=== PATIENT | female | born 2000 | race Caucasian/White ===

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

== ENCOUNTER 2022-01-24 17:00 | Outpatient (CLI) | payer OTHER ==
[2022-01-24 18:27] LABS: THYROID STIMULATING HORMONE 4.11 uIU/mL (0.34-5.60)
[2022-01-24 18:29] LABS: FREE T4 (FREE THYROXINE) 0.87 ng/dL (0.58-1.64)
--- NOTE | 2022-01-25 08:59 | Ultrasound Report ---
PROCEDURE: Pelvic w/Transvaginal INDICATIONS: IRREGULAR MENSTRUATION TECHNIQUE: Real-time scanning was performed of the pelvic organs, with image documentation. Additional endovagi nal scanning was necessary due to incomplete visualization of the adnexal and endometrial structures by transabdominal scanning. COMPARISON: July 22, 2019. FINDINGS: UTERUS: Retroverted predominantly homogeneous echotexture, and measures 7.3 x 4 x 4.8 cm. The endomet rial complex measures 5.2 mm. RIGHT OVARY: 3.9 x 2 x 2.8 cm. Vol: 11.3 mL. Color-flow projects over the ovarian tissue. LEFT OVARY: 4.2 x 1.7 x 3.2 cm. Vol: 12.1 mL. Color-flow projects over the ovarian tissue. Greater than 12 follicles in each ovary. OTHER: None. IMPRESSION: 1.Greater than 12 follicles in each ovary. Reviewed by: Chavez Carey MD on 01/25/2022 8:57 AM PDT Approved by: Chavez Carey MD on 01/25/2022 8:57 AM PDT Station ID: [id number]
== END 2022-01-24 17:01 | disposition home or self-care (01) ==
LOC: DI 17:00
PROVIDERS: ATTEND Nurse Practitioner Obstetrics & Gynecology
DX: N92.6 Irregular menstruation, unspecified (principal); E28.2 Polycystic ovarian syndrome
CPT/HCPCS: 36415; 81599; 83036; 84439; 84443

== ENCOUNTER 2023-08-20 14:45 | Outpatient (CLI) | payer OTHER ==
[2023-08-20 17:32] LABS: BASOPHILS % (AUTO) 0.6 %; EOSINOPHILS # (AUTO) 0.1 10^3/uL (0.0-0.7); HCT - HEMATOCRIT 43.4 % (37.0-47.0); HGB - HEMOGLOBIN 14.1 g/dL (12.0-16.0); LYMPHOCYTES # (AUTO) 1.4 10^3/uL (1.5-3.5); MEAN CORPUSCULAR HEMOGLOBIN 30.1 pg (27.0-31.0); MEAN CORPUSCULAR HGB CONC 32.5 g/dL (32.0-36.0); MEAN CORPUSCULAR VOLUME 92.7 fL (81.0-99.0); MEAN PLATELET VOLUME 11.1 fL (7.9-10.8); MONOCYTES # (AUTO) 0.4 10^3/uL (0.0-1.0); MONOCYTES % (AUTO) 6.1 %; NEUTROPHILS # (AUTO) 4.4 10^3/uL (1.5-6.6); PLT - PLATELET COUNT 298 10^3/uL (130-450); RED BLOOD COUNT 4.68 10^6/uL (4.20-5.40); RED CELL DISTRIBUTION WIDTH 12.7 % (12.0-15.0); WHITE BLOOD COUNT 6.4 x10^3/uL (4.8-10.8)
[2023-08-20 18:22] LABS: ALBUMIN 4.9 g/dL (3.2-5.5); ALBUMIN/GLOBULIN RATIO 1.6 (1.0-2.2); BILIRUBIN,TOTAL 0.5 mg/dL (0.2-1.0); CALCIUM 10.3 mg/dL (8.5-10.3); CREATININE 0.7 mg/dL (0.6-1.3); POTASSIUM 3.7 mmol/L (3.5-4.5)
[2023-08-20 18:26] LABS: THYROID STIMULATING HORMONE 2.13 uIU/mL (0.34-5.60)
== END 2023-08-20 15:00 | disposition home or self-care (01) ==
LOC: LAB.N 14:45
PROVIDERS: ATTEND Physician Assistant Medical
DX: R00.2 Palpitations (principal)
CPT/HCPCS: 36415; 80053; 84439; 84443; 84481; 85025

== ENCOUNTER 2024-01-16 21:11 | Outpatient (CLI) | payer MEDICAID ==
--- NOTE | 2024-01-17 18:52 | Ultrasound Report ---
PROCEDURE: Soft Tissue Head or Neck INDICATIONS: MASS TECHNIQUE: Real-time scanning was performed of the thyroid gland, with image documentation. COMPARISON: None FINDINGS: Targeted ultrasound of the right neck area of palpable concern demonstrates a lymph node with normal morphology measuring 0.7 cm in short axis. There are bilateral symmetric lymph nodes in the neck whic h are not enlarged with normal morphology including an echogenic fatty hilum. IMPRESSION: Bilateral symmetric nonenlarged lymph nodes with normal morphology. Recommend clinical correlation. Reviewed by: Winter Khanna MD on 01/17/2024 6:51 PM PDT Approved by: Winter Khanna MD on 01/17/2024 6:51 PM PDT Station ID: [id number]
== END 2024-01-16 21:12 | disposition home or self-care (01) ==
LOC: DI 21:11
PROVIDERS: ATTEND Physician Assistant
DX: R22.1 Localized swelling, mass and lump, neck (principal)

== ENCOUNTER 2024-04-02 14:00 | Outpatient (CLI) | payer MEDICAID ==
--- NOTE | 2024-04-02 17:07 | XRAY Report ---
PROCEDURE: Chest 2V INDICATIONS: CHEST PAIN, UNSPECIFIED TECHNIQUE: 2 views of the chest were acquired. COMPARISON: None. FINDINGS: Surgical changes and devices: None. Lungs and pleura: No dense consolidation or pleural effusion. Mediastinum: Normal heart size Bones and chest wall: Unremarkable IMPRESSION: No acute radiographic abnormality. Reviewed by: Brian Simon MD on 04/02/2024 5:06 PM PDT Approved by: Brian Simon MD on 04/02/2024 5:06 PM PDT Station ID: [id number]
== END 2024-04-02 15:30 | disposition home or self-care (01) ==
LOC: DI.N 14:00
PROVIDERS: ATTEND Nurse Practitioner
DX: R07.9 Chest pain, unspecified (principal)

== ENCOUNTER 2024-05-07 18:19 | Outpatient (CLI) | payer MEDICAID ==
[2024-05-07 18:45] LABS: BASOPHILS # (AUTO) 0.1 10^3/uL (0.0-0.1); BASOPHILS % (AUTO) 0.9 %; EOSINOPHILS # (AUTO) 0.8 10^3/uL (0.0-0.7); EOSINOPHILS % (AUTO) 10.4 %; HCT - HEMATOCRIT 40.2 % (37.0-47.0); HGB - HEMOGLOBIN 13.3 g/dL (12.0-16.0); LYMPHOCYTES # (AUTO) 2.1 10^3/uL (1.5-3.5); MEAN CORPUSCULAR HEMOGLOBIN 29.8 pg (27.0-31.0); MEAN CORPUSCULAR HGB CONC 33.1 g/dL (32.0-36.0); MEAN CORPUSCULAR VOLUME 90.1 fL (81.0-99.0); MEAN PLATELET VOLUME 10.9 fL (7.9-10.8); MONOCYTES # (AUTO) 0.6 10^3/uL (0.0-1.0); MONOCYTES % (AUTO) 7.9 %; NEUTROPHILS % (AUTO) 52.5 %; PLT - PLATELET COUNT 284 10^3/uL (130-450); RED BLOOD COUNT 4.46 10^6/uL (4.20-5.40); RED CELL DISTRIBUTION WIDTH 12.5 % (12.0-15.0); WHITE BLOOD COUNT 7.6 x10^3/uL (4.8-10.8)
[2024-05-07 19:17] LABS: ALBUMIN 4.7 g/dL (3.2-5.5); ALBUMIN/GLOBULIN RATIO 1.7 (1.0-2.2); BILIRUBIN,TOTAL 0.3 mg/dL (0.2-1.0); CALCIUM 9.9 mg/dL (8.5-10.3); CREATININE 0.8 mg/dL (0.6-1.3); POTASSIUM 4.1 mmol/L (3.5-4.5); TOTAL PROTEIN 7.5 g/dL (6.4-8.9)
== END 2024-05-07 18:20 | disposition home or self-care (01) ==
LOC: LAB 18:19
PROVIDERS: ATTEND Physician Assistant
DX: R10.31 Right lower quadrant pain (principal)
CPT/HCPCS: 36415; 80053; 83690; 85025

== ENCOUNTER 2024-05-16 09:53 | Outpatient (CLI) | payer MEDICAID ==
--- NOTE | 2024-05-16 20:52 | Ultrasound Report ---
PROCEDURE: Abdomen Limited INDICATIONS: R LOWER QUAD ABD PAIN TECHNIQUE: Real-time focused scanning was performed of the abdomen, with image documentation. COMPARISONS: 07/22/2019 FINDINGS: Liver: Liver is normal in size and homogeneous in echotexture. Gallbladder: No gallstones, sludge, wall thickening or pericholecystic edema. Biliary ducts: Intrahepatic bile ducts are non-dilated. Extrahepatic bile duct caliber measures 3 m m. Normal is 6-7 mm or less in diameter, or 10 mm or less post-cholecystectomy. Pancreas: Visualized portions of the pancreas are sonographically normal. Right kidney: Normal in size and echotexture. Right kidney measures 11.2 cm long. No hydronephrosis or nephrolithiasis. No solid masses. No complex renal cystic lesions which require follow-up. IVC: Intrahepatic inferior vena cava is patent. Miscellaneous: No free abdominal fluid. IMPRESSION: Unremarkable right upper quadrant abdominal ultrasound. Reviewed by: Alvaro Mendoza MD on 05/16/2024 8:50 PM PDT Approved by: Alvaro Mendoza MD on 05/16/2024 8:50 PM PDT Station ID: [id number]
== END 2024-05-16 09:54 | disposition home or self-care (01) ==
LOC: DI 09:53
PROVIDERS: ATTEND Physician Assistant
DX: R10.31 Right lower quadrant pain (principal)